=== PATIENT | female | born 2000 | race Caucasian/White ===

== ENCOUNTER → 2024-03-25 13:56 | Outpatient (REF) | payer BC, SELFPAY | LOC: REG 13:56 | PROVIDERS: ATTENDING PHYSICIAN Nurse Practitioner | DX: R07.0 Pain in throat (principal) | CPT/HCPCS: 87070; 87880 ==

== ENCOUNTER 2024-04-08 13:28 | Emergency (ER) | payer BC, SELFPAY ==
[2024-04-08 13:32] VITALS: BP 128/82
[2024-04-08 13:36] VITALS: BMI 32.4
--- NOTE | 2024-04-08 14:00 | ED.GENMED ---
History of Present Illness
<Eran Giles, DO - Last Filed: 04/08/24 15:47>
General
Chief Complaint: Dizziness
Source: patient
Time Seen by Provider: 04/08/24 13:45
Nursing documentation reviewed up to this point in time: agreed with
History of Present Illness
History of Present Illness:
24-year-old female presents emergency room feeling nauseous and off-balance, feeling like she is going to pass out. She drank coffee, and a caffeinated energy drink. She has not had this feeling this before. She takes phentermine for weight loss.
Past History
<Eran Giles DO - Last Filed: 04/08/24 15:47>
Past History
ED Past Medical History: None
ED Past Surgical History: Orthopedic (Left knee arthroscopy) and Other ([place] teeth removal)
Social History
Tobacco: Non-smoker
Alcohol: None
Drug: None
Personal: Single
Living: with roommate
Employment: Employed (RN at [employer])
Review of Systems
<Eran Giles, DO - Last Filed: 04/08/24 15:47>
Review of Systems
Allergies reviewed?: Yes
All Other Systems: Not applicable
Constitutional: Reports no symptoms
EENT: Reports no symptoms
Respiratory: Reports no symptoms
Cardiac: Reports no symptoms
ABD/GI: Reports nausea; Denies abdominal pain
: Reports no symptoms
Musculoskeletal: Reports no symptoms
Skin: Reports no symptoms
Neurological: Reports dizzy
Endocrine: Reports no symptoms
Hematologic/Lymphatic: Reports no symptoms
Psychiatric: Reports no symptoms
Phy Exam
<Eran Giles, DO - Last Filed: 04/08/24 15:47>
Physical Exam
Physical Exam:
Physical Exam
General: no apparent distress, not acutely ill
Neck: supple. no meningeal signs. normal posterior pharynx
Heart: s1/s2 regular rate and rhythm, no murmur. equal radial
pulses.
HEENT: Pupils equal round reactive to light, EOMI
Lungs: no acute respiratory distress. clear bilaterally
Abdomen: normal bowel sounds. not tender. no CVAT
Neuro: alert and oriented. no focal neurological deficits cranial nerves II through XII intact
Skin: no rash
Psychiatric: well kept. interactive and cooperative
Extremities: no edema. no calf tenderness. negative homans. good distal pulses
Course
<Eran Giles, DO - Last Filed: 04/08/24 15:47>
Orders/Labs/Results
Orders:
Orders
04/08/24 13:38
EKG [Electrocardiogram (*1)] Urgent
Reason for Study: Vertigo / Dizzy
04/08/24 13:39
EKG- Treatment ONCE
04/08/24 13:48
Complete Blood Count/With Diff Urgent
Comprehensive Metabolic Panel Urgent
HCG, Serum Qualitative Screen Urgent
Comment: ADD ON
04/08/24 13:59
Physical Therapy Consult [Pt Eval And Treat] Urgent
Treatment: vestibular evaluation
Activity Level: Ambulate
04/08/24 14:00
IV Insert/Care/Rem.- Treatment PRN
0.9% Sodium Chloride 1000 ml [Nss] 1,000 ml IV BOLUS
04/08/24 14:34
Add On- LAB Urgent
Tests Added?: hcg qualitative
04/08/24 14:50
CT Head W/o Iv Contrast Urgent
Comment:
Reason For Exam: dizziness, feels off balance
04/08/24 15:07
Ondansetron Injectable [Zofran] 4 mg IV NOW STA
Abnormal Lab Results
04/08/24
13:48
Hct 36.1 L %
(37.0-47.0)
MCV 80.6 L fL
(81.0-99.0)
MPV 11.4 H fL
(7.4-10.4)
Glucose 108 H mg/dl
(70-99)
04/08/24 13:48
04/08/24 13:48
Vital Signs
Initial and Last Documented VS:
Initial Vital Signs
Temp Pulse Resp BP Pulse Ox
98.8 F 78 18 128/82 100
04/08/24 13:32 04/08/24 13:32 04/08/24 13:32 04/08/24 13:32 04/08/24 13:32
Last Documented Vital Signs
Temp Pulse Resp BP Pulse Ox
98.8 F 86 14 108/76 100
04/08/24 13:32 04/08/24 17:32 04/08/24 17:32 04/08/24 17:42 04/08/24 16:45
<Krishna Nathan, DO - Last Filed: 04/08/24 18:02>
Orders/Labs/Results
Orders:
Orders
04/08/24 13:38
EKG [Electrocardiogram (*1)] Urgent
Reason for Study: Vertigo / Dizzy
04/08/24 13:39
EKG- Treatment ONCE
04/08/24 13:48
Complete Blood Count/With Diff Urgent
Comprehensive Metabolic Panel Urgent
HCG, Serum Qualitative Screen Urgent
Comment: ADD ON
04/08/24 13:59
Physical Therapy Consult [Pt Eval And Treat] Urgent
Treatment: vestibular evaluation
Activity Level: Ambulate
04/08/24 14:00
IV Insert/Care/Rem.- Treatment PRN
0.9% Sodium Chloride 1000 ml [Nss] 1,000 ml IV BOLUS
04/08/24 14:34
Add On- LAB Urgent
Tests Added?: hcg qualitative
04/08/24 14:50
CT Head W/o Iv Contrast Urgent
Comment:
Reason For Exam: dizziness, feels off balance
04/08/24 15:07
Ondansetron Injectable [Zofran] 4 mg IV NOW STA
Abnormal Lab Results
04/08/24
13:48
Hct 36.1 L %
(37.0-47.0)
MCV 80.6 L fL
(81.0-99.0)
MPV 11.4 H fL
(7.4-10.4)
Glucose 108 H mg/dl
(70-99)
04/08/24 13:48
04/08/24 13:48
Vital Signs
Initial and Last Documented VS:
Initial Vital Signs
Temp Pulse Resp BP Pulse Ox
98.8 F 78 18 128/82 100
04/08/24 13:32 04/08/24 13:32 04/08/24 13:32 04/08/24 13:32 04/08/24 13:32
Last Documented Vital Signs
Temp Pulse Resp BP Pulse Ox
98.8 F 86 14 108/76 100
04/08/24 13:32 04/08/24 17:32 04/08/24 17:32 04/08/24 17:42 04/08/24 16:45
<Eran Giles, DO - Last Filed: 04/08/24 15:47>
MDM/Problems Addressed
Differential Diagnosis Includes:
Dysrhythmia, vertigo, intracranial mass
MDM/Problems Addressed:
24-year-old female with nausea and dizziness, likely due to caffeine intake versus hypovolemia. EKG normal. Will obtain head CT to rule out intracranial mass
<Eran Giles, DO - Last Filed: 04/08/24 15:47>
*Pulse Oximetry
Patient hypoxic: no
*EKG
Interpreted by ED Provider?: Yes
EKG Intrepretation Date: 04/08/24
EKG Intrepretation Time: 13:43
Interpretation: normal
Comparison EKG: no comparison EKG present
Heart Rate: 77
Rate: normal
Rhythm: sinus
[place]: normal axis
Interval: normal interval
QRS Pattern: normal QRS
Ischemia: no ischemia
*Communications And Signals Supervisor Interpretation
Rate: normal
Interpretation: normal
Heart Rate: 75
Rhythm: sinus
*Critical Care Note
Total Time (30-74mins, 75-104mins- exclusive of procedures): Not Applicable
<Eran Giles DO - Last Filed: 04/08/24 15:47>
Patient Management
Social determinants of health affecting care: Living situation
Discussion with other providers: [employer] (Physical therapy noted no signs of vertigo)
Escalation/DeEscalation of care consider admission/obs:
Admit not indicated
<Krishna Nathan, DO - Last Filed: 04/08/24 18:02>
Update Note
Update Note:
I have the patient at bedside prior to discharge. I informed her of a Chiari I malformation. Overall she feels markedly improved. Some of her symptoms seem to be positional in nature. She very well could have had BPPV. Physical therapy was
involved earlier.
ED Attending Note
<Eran Giles DO - Last Filed: 04/08/24 15:47>
-
Portions of this chart may have been created with voice recognition software.� Occasional wrong word or��sound alike� substitutions may have occurred due to the inherent limitations of voice recognition software.
Discharge Plan
Departure
Patient Disposition: Home (Routine Discharge)
Date of Disposition: 04/08/24
Time of Disposition: 17:58
Patient with high blood pressure during this ER visit?: Yes
Condition: Good
Discharge Problem:
Dizziness
Instructions: Dizziness, BLOOD PRESSURE
Referrals:
Elliot Dixon, [Active] - Follow up in 10 days
Kalani Rebolledo DO [Family Provider] - Call in 1-3 days for appt
Activity Restrictions/Additional Instructions:
CT of the head shows no acute abnormality but does show a mild Chiari I malformation. I did notify Dr. Dixon of this. You could follow-up with him for further evaluation but I do not think that this is anything to do with your symptoms from
earlier today.
Interventions
Interventions:
*Risk Screen - Suicide Last Done: 04/08/24 13:37
*General Assessment Last Done: 04/08/24 13:37
*Neglect/Abuse Screening Last Done: 04/08/24 13:37
*ED COVID-19 Vaccine History Last Done: 04/08/24 13:37
ED- Neurological Assessment Last Done: 04/08/24 13:59
ED- Cardiac Assessment Last Done: 04/08/24 13:59
ED Swallowing Screen Last Done: 04/08/24 15:30
Discharge Date and Time
Print Language: NEPALESE
[2024-04-08] MEDS: NSS 1000 IV (14:01)
[2024-04-08 14:27] LABS: ALT (SGPT) 20 U/L (0-35); AST (SGOT) 19 U/L (14-36); Albumin 4.4 g/dl (3.5-5.0); Alkaline Phosphatase 59 U/L (38-126); Blood Urea Nitrogen 16 mg/dl (7-17); Calcium 9.6 mg/dl (8.4-10.2); Carbon Dioxide 25 mmol/L (22-30); Chloride 101 mmol/L (98-107); Estimated Creatinine Clearance 94 ml/min; Glucose 108 mg/dl (70-99); Potassium 3.8 mmol/L (3.5-5.1); Sodium 139 mmol/L (135-145); Total Bilirubin 0.5 mg/dl (0.2-1.3); Total Protein 6.8 g/dl (6.3-8.2); eGFR > 60.00
[2024-04-08 14:32] VITALS: BP 136/85
[2024-04-08 14:33] LABS: % Basophils 0.7 % (0-2); % Eosinophils 1.3 % (0-6); % Immature Granulocytes 0.2 % (0-0.5); % Lymphocytes 34.2 % (20.5-51.1); % Monocytes 5.6 % (1.7-9.3); Absolute Eosinophils 0.1 10^3/uL (0-0.7); Absolute Lymphocytes 1.8 10^3/uL (1.2-3.4); Absolute Monocytes 0.3 10^3/uL (0.1-0.6); Absolute Neutrophils 3.1 10^3/uL (1.4-6.5); Hematocrit 36.1 % (37.0-47.0); Hemoglobin 12.3 g/dL (12.0-16.0); Mean Corp Hgb Conc. 34.1 g/dL (33.0-37.0); Mean Corpuscular Hgb 27.5 pg (27.0-31.0); Mean Corpuscular Volume 80.6 fL (81.0-99.0); Mean Platelet Volume 11.4 fL (7.4-10.4); Nucleated Red Blood Cells % 0 %; Platelet Count 182 10^3/uL (130-400); Red Blood Cell Count 4.48 10^6/uL (4.20-5.40); Red Cell Dist. Width 12.8 % (11.5-14.5); White Blood Cell Count 5.4 10^3/uL (4.8-10.8)
[2024-04-08 14:55] VITALS: BP 136/85; PULSE 87
[2024-04-08 15:07] LABS: HCG, Serum Qualitative Screen Negative
[2024-04-08] MEDS: ZOFRAN 4 MG IV (15:26)
[2024-04-08 17:42] VITALS: BP 108/76
== END 2024-04-08 18:12 | disposition home or self-care (01) ==
LOC: EMR 13:28
PROVIDERS: EMERGENCY PHYSICIAN Emergency Medicine; FAMILY PHYSICIAN Emergency Medicine
DX: R42 Dizziness and giddiness (principal); R11.0 Nausea; R03.0 Elevated blood-pressure reading, without diagnosis of hypertension; G93.5 Compression of brain
CPT/HCPCS: 99284; 96374; 96361; 70450; 80053; 84703; 85025; 93005

== ENCOUNTER → 2024-10-20 08:26 | Outpatient (REF) | payer BC, SELFPAY | LOC: RCS 08:26 | PROVIDERS: ATTENDING PHYSICIAN Internal Medicine Cardiovascular Disease | DX: R07.89 Other chest pain (principal) | CPT/HCPCS: 93225; 93226 ==

== ENCOUNTER → 2025-04-22 09:36 | Outpatient (REF) | payer BC, SELFPAY | LOC: HWRAD 09:36 | PROVIDERS: ATTENDING PHYSICIAN Advanced Practice Midwife; FAMILY PHYSICIAN Emergency Medicine | DX: N93.9 Abnormal uterine and vaginal bleeding, unspecified (principal) | CPT/HCPCS: 76830; 76856 ==